=== PATIENT | male | born 1950 | race Caucasian/White ===

== ENCOUNTER 2018-01-14 11:50 | Emergency (ER) | payer MEDICARE ==
[2018-01-14] MEDS ORDERED: Lidocaine 1% w/Epinephrine 1:100K 20 ML VIAL ONE (12:02)
[2018-01-14] MEDS ORDERED: Bacitracin Zinc 1 Packet ONE (12:29)
--- NOTE | 2018-01-14 13:43 | RAD ---
THREE VIEWS LEFT HAND: Date: 01-14-18 History: Left hand injury, trauma. FINDINGS: No acute fracture or dislocation is seen. Tiny osseous density is seen dorsal to the wrist which may be related to prior remote tiny avulsion injury. 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 No other osseous abnormality. IMPRESSION: No acute osseous abnormality involving the left hand. POS: [facility]
== END 2018-01-14 13:15 | disposition home or self-care (01) ==
LOC: SCSER 11:50
DX: S61.012A Laceration without foreign body of left thumb without damage to nail, initial encounter (principal); E78.5 Hyperlipidemia, unspecified; F32.9 Major depressive disorder, single episode, unspecified; I10 Essential (primary) hypertension; W27.8XXA Contact with other nonpowered hand tool, initial encounter; Y92.009 Unspecified place in unspecified non-institutional (private) residence as the place of occurrence of the external cause
CPT/HCPCS: 12002; J2001

== ENCOUNTER 2022-04-04 11:57 | Outpatient (CLI) | payer MEDICARE | END 2022-04-04 11:58 | disposition home or self-care (01) | LOC: CT 11:57 | PROVIDERS: ATTEND Family Medicine | DX: G45.9 Transient cerebral ischemic attack, unspecified (principal) | CPT/HCPCS: 70450 ==

== ENCOUNTER 2022-04-04 12:21 | Outpatient (CLI) | payer MEDICARE | END 2022-04-04 12:22 | disposition home or self-care (01) | LOC: ULT 12:21 | PROVIDERS: ATTEND Family Medicine | DX: G45.9 Transient cerebral ischemic attack, unspecified (principal); R29.818 Other symptoms and signs involving the nervous system | CPT/HCPCS: 70450; 93880 ==